=== PATIENT | female | born 1990 | race Caucasian/White ===

== ENCOUNTER → 2017-12-15 | Day surgery (SDC) | payer OTHER ==
[~2017-12-15] VITALS: Ht 162.5 cm; Wt 70.3 kg
[~2017-12-15] MED LIST: LARIN 24 FE 11 EACH PO; TRAMADOL HCL50 MG PO
[2017-12-15 07:01] VITALS: BP 125/70
[2017-12-15 09:00] VITALS: BP 134/72
[2017-12-15 09:15] VITALS: BP 114/60
[2017-12-15 09:30] VITALS: BP 117/62
[2017-12-15 09:45] VITALS: BP 113/71
== END ==
LOC: SDC 12-10 10:15
DX: D17.1 Benign lipomatous neoplasm of skin and subcutaneous tissue of trunk (principal); Z98.890 Other specified postprocedural states

== ENCOUNTER → 2020-07-17 | Outpatient (CLI) | payer OTHER | END | disposition home or self-care (01) | LOC: COVID19 00:35 | PROVIDERS: ATTEND Nurse Practitioner Family | DX: Z20.828 Contact with and (suspected) exposure to other viral communicable diseases (principal) ==